=== PATIENT | female | born 1975 | race Hispanic/Latino ===

== ENCOUNTER 2018-07-28 10:45 | Inpatient (IN) | payer OTHER, SELFPAY ==
[~2018-07-28] VITALS: Ht 154.9 cm; Wt 113.9 kg
[2018-07-28 12:03] LABS: HEMATOCRIT 38.2 % (36-48); MEAN CORPUSCULAR HEMOGLOBIN 30.6 pg (27.0-33.0); MEAN CORPUSCULAR HGB CONC 33.7 g/dL (32.0-36.0); MEAN CORPUSCULAR VOLUME 90.7 fL (79-99); PLATELET COUNT (AUTO) 234 K/uL (130-400); RED BLOOD CELL COUNT(AUTO) 4.21 MIL/uL (4.00-5.50); RED CELL DISTRIBUTION WIDTH 14.8 % (11.0-15.5); WHITE BLOOD COUNT (AUTO) 12.7 K/uL (4.8-10.8)
[2018-07-29] MEDS ORDERED: LACTATED RINGERS 1000ML 1,000 ML IV SCH (05:45)
[2018-07-29] MEDS ORDERED: CEFAZOLIN SODIUM 1 GM VIAL IVP PRN (05:45)
[2018-07-29 06:35] LABS: APPEARANCE,URINE Clear (CLEAR); BILIRUBIN,URINE Negative (NEGATIVE); COLOR,URINE Yellow (YELLOW); GLUCOSE, URINE (UA) Negative (NEGATIVE); KETONES,URINE Negative (NEGATIVE); LEUKOCYTE ESTERASE ,URINE Large (NEGATIVE); NITRATE,URINE Negative (NEGATIVE); OCCULT BLOOD,URINE Negative (NEGATIVE); PROTEIN,URINE Negative (NEGATIVE); UROBILINOGEN,URINE 0.2 mg/dL (0.2-1.0)
[2018-07-29 06:43] LABS: BACTERIA,URINE Moderate /HPF (None Seen); RBC,URINE 0-1 /HPF (0-1)
[2018-07-29] MEDS ORDERED: DURAMORPH PF1 MG/ML 10ML AMP IV ONE (07:10)
[2018-07-29] MEDS ORDERED: CEFAZOLIN SODIUM 1 GM VIAL IVP ONE (07:20)
[2018-07-29 07:25] LABS: HEPATITIS Bs ANTIGEN SCREEN P Negative (Negative)
[2018-07-29] MEDS ORDERED: OXYTOCIN 10 USP UNITS/ML IV ONE ×2 (07:43→07:57)
[2018-07-29] MEDS ORDERED: FENTANYL CITRATE PF 50 MCG/1 ML 2ML VIAL IJ ONE (07:57)
[2018-07-29] MEDS ORDERED: ONDANSETRON HCL 4 MG/2 ML VIAL ONE (08:16)
[2018-07-29] MEDS ORDERED: OXYTOCIN-LR 20 UNITS/1000 ML 1,000 ML IV PRN (08:23)
[2018-07-29] MEDS ORDERED: SODIUM CHLORIDE 0.9% 10 ML VIAL IVP PRN (08:30)
[2018-07-29] MEDS ORDERED: MEPERIDINE-PF 75 MG/ML SYG IM PRN (08:30)
[2018-07-29] MEDS ORDERED: PROMETHAZINE HCL 25 MG/ML 1ML AMPULE IM PRN ×2 (08:30→10:45)
[2018-07-29 10:13] VITALS: BP 123/63
[2018-07-29] MEDS ORDERED: METF-444 PO (10:29)
[2018-07-29] MEDS ORDERED: PNV1TABL17 PO (10:29)
[2018-07-29] MEDS ORDERED: ONDANSETRON HCL 4 MG/2 ML VIAL IVP PRN ×2 (10:45)
[2018-07-29] MEDS ORDERED: EPHEDRINE SULFATE 50 MG/ML AMPULE IVP PRN (10:45)
[2018-07-29] MEDS ORDERED: DiphenhydrAMINE HCL 50 MG/ML VIAL IVP PRN (10:45)
[2018-07-29] MEDS ORDERED: ONDANSETRON HCL 4 MG/2 ML 8 MG in SODIUM CHLORIDE 0.9% 50 ML IVP NR (10:45)
[2018-07-29] MEDS ORDERED: MORPHINE SULFATE 2 MG/ML 1ML SYG IVP PRN (10:45)
[2018-07-29] MEDS ORDERED: METOCLOPRAMIDE 10 MG/2 ML VIAL IVP PRN (10:45)
[2018-07-29] MEDS ORDERED: HYDROCODONE/ACETAMINOPHEN 5/325 MG TAB PO PRN ×2 (10:45)
[2018-07-29] MEDS ORDERED: NALOXONE HCL 0.4 MG/1 ML ML IVP PRN ×2 (10:45)
[2018-07-29] MEDS: INSULIN HUMULIN R 100 UNIT/ML 3ML SQ SCH ×3 (12:00→21:00)
[2018-07-29 12:08] VITALS: BP 106/52
[2018-07-29 16:23] VITALS: BP 113/56
[2018-07-29] MEDS: DEXTROSE 5 %-0.45 % NACL 1,000 ML IV PRN ×2 (17:04→23:23)
[2018-07-29 19:50] VITALS: BP 108/56
[2018-07-30] VITALS (7 sets, daily range): BP systolic 97–118; BP diastolic 51–55
[2018-07-30] MEDS: SODIUM CHLORIDE 0.9% 1000ML 1,000 ML IV SCH ×3 (01:36→14:50)
[2018-07-30] MEDS ORDERED: DIPH,PERTUSS(ACELL),TET VAC/PF 0.5 ML VIAL IM ONE (02:45)
[2018-07-30 06:26] LABS: HEMATOCRIT 31.6 % (36-48); MEAN CORPUSCULAR HEMOGLOBIN 31.2 pg (27.0-33.0); MEAN CORPUSCULAR HGB CONC 34.3 g/dL (32.0-36.0); MEAN CORPUSCULAR VOLUME 91.1 fL (79-99); PLATELET COUNT (AUTO) 178 K/uL (130-400); RED BLOOD CELL COUNT(AUTO) 3.47 MIL/uL (4.00-5.50); RED CELL DISTRIBUTION WIDTH 14.8 % (11.0-15.5); WHITE BLOOD COUNT (AUTO) 9.6 K/uL (4.8-10.8)
[2018-07-30] MEDS: INSULIN HUMULIN R 100 UNIT/ML 3ML SQ SCH ×4 (07:09→21:00)
[2018-07-30] MEDS ORDERED: HYDROCODONE/ACETAMINOPHEN 5/325 MG TAB PO PRN (07:30)
[2018-07-30] MEDS ORDERED: BISACODYL 10 MG SUPP.RECT RC PRN (07:30)
[2018-07-30] MEDS ORDERED: DIPHENHYDRAMINE HCL 25 MG CAPSULE PO PRN (07:30)
[2018-07-30] MEDS ORDERED: ACETAMINOPHEN EXTRA STRENGTH 500 MG TABLET PO PRN (07:30)
--- NOTE | 2018-07-30 07:40 | NUR ---
MEDINA MEDINA REMOVED, CATHETER TIP INTACT, 800mL OF CLEAR YELLOW URINE REMOVED, KALINA CARE PROVIDED; DRESSING OVER INCISION REMOVED EXPOSING INCISION w/ CHANDRA, DRY AND INTACT, KALINA PAD PLACED OVER TO MAINTAIN DRYNESS, ABDOMINAL BINDER PLACED OVER FOR SUPPORT; SCDs REMOVED, TEDs ADJUSTED; PT OOB TO CHAIR, STEADY GAIT, NO DIZZINESS NOR FATIGUE, TOLERATED WELL; RETURN DEMONSTRATION DONE USING I.S.; POC DISCUSSED, PT VERBALIZED UNDERSTANDING Addendum: 07/30/18 at 1656 by MANOHAR SILVA RN Amended: Links added.
[2018-07-30] MEDS: DOCUSATE SODIUM 100 MG CAP PO SCH ×2 (08:41→21:55)
[2018-07-30] MEDS: SIMETHICONE 80 MG TAB.CHEW PO PRN ×4 (08:41→21:55)
[2018-07-30] MEDS: IBUPROFEN 600 MG TABLET PO PRN ×3 (08:42→21:56)
--- NOTE | 2018-07-30 09:00 | NUR ---
ACTIVITY PT AMBULATING HALLWAY, STEADY GAIT, ACCOMPANIED BY SPOUSE, TOLERATING WELL, PASSING FLATUS
[2018-07-30] MEDS: ACETAMINOPHEN-CODEINE 300/30MG TAB PO PRN ×2 (10:16→17:13)
--- NOTE | 2018-07-30 14:07 | NUR ---
RHOGAM IV FLUSHED WITH 10mL OF NS, RHOGAM ADMINISTERED IV, IV FLUSHED WITH ANOTHER 10mL OF NS; IV REMOVED, PT TOLERATED WELL, NO C/O PAIN, NO TRANSFUSION REACTION NOTED; RHOGAM CARD PROVIDED TO PATIENT
--- NOTE | 2018-07-30 19:55 | NUR ---
ACTIVITY ENCOURAGED TO TURN TO SIDES IN BED, PUSH FLUIDS Addendum: 07/31/18 at 0310 by DK REN LVN Amended: Links added.
[2018-07-31 03:34] VITALS: BP 101/68
[2018-07-31] MEDS: IBUPROFEN 600 MG TABLET PO PRN ×2 (03:58→09:12)
[2018-07-31 07:33] VITALS: BP 122/69
[2018-07-31] MEDS: SIMETHICONE 80 MG TAB.CHEW PO PRN (09:11)
[2018-07-31] MEDS: DOCUSATE SODIUM 100 MG CAP PO SCH (09:11)
[2018-07-31 11:39] VITALS: BP 108/64
--- NOTE | 2018-07-31 14:25 | NUR ---
DISCHARGE PATIENT LEFT UNIT VIA WHEELCHAIR WITH BELONGINGS IN HAND. NO COMPLAINTS OR CONCERNS ADDRESSED FROM PATIENT ON DISCHARGE. BABY SECURE IN CARSEAT.
== END 2018-07-31 14:25 | disposition home or self-care (01) | DRG 788 ==
LOC: LDH 07-29 05:35 → WSH 07-29 10:20
PROVIDERS: ADMIT Obstetrics & Gynecology; ATTEND Obstetrics & Gynecology
PROC: 10D00Z1 Extraction of Products of Conception, Low, Open Approach (ICD-10-PCS; principal; 2018-07-29 08:00)
PROC: 3E0234Z Introduction of Serum, Toxoid and Vaccine into Muscle, Percutaneous Approach (ICD-10-PCS; 2018-07-30)
PROC: 3E0234Z Introduction of Serum, Toxoid and Vaccine into Muscle, Percutaneous Approach (ICD-10-PCS; 2018-07-30)
DX: O34.211 Maternal care for low transverse scar from previous cesarean delivery (principal); Z37.0 Single live birth; O99.214 Obesity complicating childbirth; E66.9 Obesity, unspecified; O32.1XX0 Maternal care for breech presentation, not applicable or unspecified; O24.429 Gestational diabetes mellitus in childbirth, unspecified control; Z29.13 Encounter for prophylactic Rho(D) immune globulin; Z23 Encounter for immunization; Z82.49 Family history of ischemic heart disease and other diseases of the circulatory system; Z83.3 Family history of diabetes mellitus; Z80.49 Family history of malignant neoplasm of other genital organs; Z3A.38 38 weeks gestation of pregnancy
CPT/HCPCS: 36415; 59510; 81001; 82948; 83033; 85027; 86592; 86850; 86900; 86901; 87340; A4344; A4450; A4606; G0378; J0690; J2175; J2274; J2405; J2550; J2590; J2791; J3010; J7030; J7120